=== PATIENT | male | born 1960 | race Caucasian/White ===

== ENCOUNTER → 2020-01-05 | Outpatient (CLI) | payer BC, OTHER | LOC: SJCVCIMAG 11:36 | DX: I35.0 Nonrheumatic aortic (valve) stenosis (principal); I51.7 Cardiomegaly; I48.91 Unspecified atrial fibrillation; F17.200 Nicotine dependence, unspecified, uncomplicated ==

== ENCOUNTER → 2020-01-13 | Outpatient (CLI) | payer BC, OTHER ==
[~2020-01-13] MED LIST: ASA81BEC PO; CHILDREN'S ZYRT10 M1 PO; CRESTOR10 MG PO; FISH OIL CONCE1 EAC1 PO; MULTAQ400 MG PO; TOPROL XL25 MG PO; XARELTO20 MG PO
== END ==
LOC: SJCVCIMAG 01-11 08:54
PROVIDERS: ATTEND Internal Medicine Cardiovascular Disease
DX: I48.91 Unspecified atrial fibrillation (principal)

== ENCOUNTER → 2020-02-09 | Outpatient (CLI) | payer BC, OTHER ==
[~2020-02-09] VITALS: Ht 195.6 cm; Wt 117.9 kg
[~2020-02-09] MED LIST changes: -MULTAQ400 MG PO
[2020-02-09 07:31] VITALS: BP 120/80
--- NOTE | 2020-02-09 09:10 | TEE ---
[facility] [place] [place] [address] [address] TRANSESOPHAGEAL ECHOCARDIOGRAM Name: MARY KAY SLAUGHTER [id number]: 02/09/20 Attend Phys: Demetrius James MD, Discharge: Date of : 56 Report #: [id number] THIS REPORT FOR: cc: Melida Lyn Phyllis L. DO Lundgren, Craig H. MD [facility] ~ APPROVED REPORT Study performed: 02/09/2020 07:52:14 EXAM: Transesophageal Echocardiogram with Doppler and Cardioversion Patient Location: Out-Patient Room #: CV Status: routine BSA: 2.54 HR: 71 bpm BP: 120/77 mmHg Rhythm: Atrial Fibrillation Other Information Study Quality: Good Indications Atrial Fibrillation Cardioversion. Echo Enhancing Agent Indication: Rule out Shunt Agent(s) / Amount(s) Used: Agitated Saline 7 cc Procedure After obtaining informed consent, patient underwent transesophageal echo in the [employer] [employer]. Type of Sedation : Conscious Sedation Sedation was administered by WINNIE Benton. Sedation was achieved intravenously with: Versed (6) Fentanyl (100) Transesophageal probe was inserted and advanced into esophagus without difficulty by Demetrius James MD. The HUMERA was performed without complications. Synchronized Cardioversion attempted: Successful. 1st attempt: 120 joules; 2nd attempt 200 joules. Rhythm following Synchronized Cardioversion: Sinus Bradycardia [facility] [place] [address] [place] [address] TRANSESOPHAGEAL ECHOCARDIOGRAM Name: MARY KAY SLAUGHTER Room #: REG CL [facility]#: [id number] Admission: 02/09/20 Attend Phys: Demetrius James, Discharge: Date of : 56 Report #: [id number] Throughout the procedure, the blood pressure, pulse oximetry, cardiac rhythm, and rate were monitored. The patient tolerated the procedure without adverse effects. Recovery from conscious sedation was uneventful and vital signs were stable. Left Ventricle The left ventricle is normal size. There is normal LV segmental wall motion. There is normal left ventricular wall thickness. Left ventricular systolic function is at the lower limits of normal. LVEF is 45-50%. Right Ventricle The right ventricle is normal size. The right ventricular systolic function is normal. Atria The left atrium size is normal. No thrombus is visualized in the left atrium or appendage. No shunting noted by contrast bubble injection. The right atrium size is normal. Aortic Valve The aortic valve is normal in structure. Mild, central aortic regurgitation. There is no aortic valvular stenosis. Mitral Valve The mitral valve is normal in structure. Mild mitral regurgitation. No evidence of mitral valve stenosis. Tricuspid Valve The tricuspid valve is normal in structure. Trace tricuspid regurgitation. Pulmonic Valve The pulmonary valve is normal in structure. There is no pulmonic valvular regurgitation. Great Vessels The aortic root is normal in size. The ascending aorta is normal in size. IVC is normal in size and collapses >50% with inspiration. Pericardium There is no pericardial effusion. <Conclusion> [facility] [place] [place] [address] [place] [address] TRANSESOPHAGEAL ECHOCARDIOGRAM Name: MARY KAY SLAUGHTER Room #: REG CL [facility].#: [id number] Admission: 02/09/20 Attend Phys: Demetrius James, Discharge: Date of : 56 Report #: [id number] Left ventricular systolic function is at the lower limits of normal. There is normal LV segmental wall motion. LVEF is 45-50%. No thrombus is visualized in the left atrium or appendage. No shunting noted by contrast bubble injection. The aortic valve is normal in structure. Mild, central aortic regurgitation, no stenosis. The mitral valve is normal in structure. Mild mitral regurgitation. There is no pericardial effusion. Successful cardioversion of atrial fibrillation to sinus rhythm following two biphasic synchronous joules shocks, 120 J, then 200 J <ELECTRONICALLY SIGNED> By: Demetrius James MD, FACC 02/09/20907 7 7 Demetrius James MD, FACC /INF
== END | disposition home or self-care (01) ==
LOC: CATH 06:30
DX: I48.91 Unspecified atrial fibrillation (principal); I08.0 Rheumatic disorders of both mitral and aortic valves; F17.210 Nicotine dependence, cigarettes, uncomplicated; Z79.899 Other long term (current) drug therapy; Z82.49 Family history of ischemic heart disease and other diseases of the circulatory system

== ENCOUNTER → 2020-03-07 | Outpatient (CLI) | payer BC, OTHER ==
[~2020-03-07] VITALS: Ht 198.1 cm; Wt 117.0 kg
[~2020-03-07] MED LIST changes: +MULTAQ400 MG PO
[2020-03-07 07:15] VITALS: BP 123/79
[2020-03-07 07:27] LABS: ABSOLUTE NEUTROPHILS 3.4 thou/uL (1.4-8.2); BASOPHILS 0.8 % (0.0-2.0); EOSINOPHILS 5.8 % (0.0-3.0); HEMATOCRIT 43.7 % (42.0-52.0); HEMOGLOBIN 14.8 gm/dL (14.0-18.0); LYMPHOCYTES 26.8 % (24.0-44.0); MCHC 33.8 g/dL (28.0-37.0); MCV 91.6 fL (80.0-100.0); MONOCYTES 11.5 % (1.0-8.0); PLATELET COUNT 302 thou/uL (150-400); POLYS 55.1 % (36.0-66.0); RBC 4.77 mil/uL (4.50-6.00); RDW 13.3 % (10.5-14.5); WBC 6.2 thou/uL (4.0-11.0)
[2020-03-07 07:35] LABS: INR 1.3; PROTIME 13.3 Seconds (9.3-11.4)
[2020-03-07 07:36] LABS: CALCIUM 8.4 mg/dL (8.5-10.1); POTASSIUM 4.3 mmol/L (3.5-5.1)
[2020-03-07 07:42] LABS: ALBUMIN 3.5 g/dL (3.4-5.0); TOTAL BILIRUBIN 0.4 mg/dL (0.2-1.0); TOTAL PROTEIN 7.6 g/dL (6.4-8.2)
--- NOTE | 2020-03-21 11:11 | P ---
[facility] [place] [address] PROCEDURE REPORT Name: MARY KAY SLAUGHTER Room #: REG [facility]#: [id number] Admission: 03/07/20 Attend Phys: Clint Palacios MD Discharge: Date of : 56 Report #: [id number] THIS REPORT FOR: cc: Melida Lyn,Clint Farah MD ~ CC: Clint Lyn PREOPERATIVE DIAGNOSIS: Atrial fibrillation. POSTOPERATIVE DIAGNOSIS: Atrial fibrillation. PROCEDURE PERFORMED: DC cardioversion. DESCRIPTION OF PROCEDURE: The patient underwent informed consent. He was sedated by the Anesthesiology service. Once sedated, he underwent a 200 joule synchronized cardioversion with judaism of sinus rhythm. There were no procedure related complications. CONCLUSIONS: Successful DC cardioversion with judaism of sinus rhythm. <ELECTRONICALLY SIGNED> By: Clint Palacios MD 03/21/20 1111 [id number] Clint Palacios MD /nt
== END | disposition home or self-care (01) ==
LOC: CATH 06:38
PROVIDERS: ATTEND Internal Medicine Cardiovascular Disease
DX: I48.91 Unspecified atrial fibrillation (principal); F17.220 Nicotine dependence, chewing tobacco, uncomplicated; Z98.890 Other specified postprocedural states; Z79.899 Other long term (current) drug therapy; Z11.59 Encounter for screening for other viral diseases; Z79.01 Long term (current) use of anticoagulants; Z79.82 Long term (current) use of aspirin
CPT/HCPCS: 62110; 62900

== ENCOUNTER → 2020-04-24 | Outpatient (CLI) | payer BC, OTHER | END | disposition home or self-care (01) | LOC: OR 08:00 → LAB 04-27 10:30 → OR 04-27 10:46 | PROVIDERS: ATTEND Internal Medicine Cardiovascular Disease | DX: Z01.812 Encounter for preprocedural laboratory examination (principal); Z11.59 Encounter for screening for other viral diseases ==